=== PATIENT | male | born 1970 | race Caucasian/White ===

== ENCOUNTER → 2018-12-02 | Outpatient (CLI) | payer BC ==
[2018-12-02 11:55] LABS: Basophils # (A) 0.1 k/uL (0-0.2); Basophils % (A) 1 %; Eosinophils # (A) 0.4 k/uL (0-0.7); Eosinophils % (A) 6 %; HCT 47.8 % (39.0-53.0); HGB 15.5 gm/dL (13.0-17.5); Lymphocytes # (A) 1.7 k/uL (1.0-4.8); Lymphocytes % (A) 28 %; MCH 29.5 pg (25.0-35.0); MCHC 32.4 g/dL (31.0-37.0); MCV 91.2 fL (80.0-100.0); Mean Platelet Volume 6.9; Monocytes # (A) 0.4 k/uL (0-1.0); Monocytes % (A) 7 %; Neutrophils # (A) 3.3 k/uL (1.3-7.7); Neutrophils % (A) 55 %; Platelet Count 282 k/uL (150-450); RBC 5.24 m/uL (4.30-5.90); RDW 12.5 % (11.5-15.5)
[2018-12-02 12:52] LABS: ALT 32 U/L (21-72); AST 25 U/L (17-59); Albumin 4.6 g/dL (3.5-5.0); Alkaline Phosphatase 60 U/L (38-126); Anion Gap 8 mmol/L; Blood Urea Nitrogen 16 mg/dL (9-20); Calcium 9.8 mg/dL (8.4-10.2); Carbon Dioxide 29 mmol/L (22-30); Chloride 105 mmol/L (98-107); Cholesterol 248 mg/dL (<200); Glucose 99 mg/dL (74-99); HDL Cholesterol 52 mg/dL (40-60); LDL Cholesterol,Calculated 173 mg/dL (0-99); Potassium 5.4 mmol/L (3.5-5.1); Sodium 142 mmol/L (137-145); Total Bilirubin 1.5 mg/dL (0.2-1.3); Total Protein 7.7 g/dL (6.3-8.2); Triglycerides 114 mg/dL (<150)
[2018-12-02 17:20] LABS: Prostate Specific Antigen 0.6 ng/mL (0.0-2.5)
--- NOTE | 2018-12-03 10:25 | ECHOS ---
STRESS ECHOCARDIOGRAM INDICATIONS: Chest pain. MEDICATIONS: Omeprazole BASELINE HEART RATE: 73 BASELINE BLOOD PRESSURE: 108/58 MAXIMUM HEART RATE: 163 MAXIMUM BLOOD PRESSURE: 186/71 85% MPHR: 147 100% MPHR: 173 METS: 10.3 MAXIMUM STAGE REACHED: 3 TOTAL EXERCISE TIME: 9:00 CLINICAL INFORMATION: Baseline heart rate is 73 beats per minute. Baseline blood pressure of 108/58 mmHg. Patient exercised on a Jaylen protocol for 9 minutes achieving a peak heart rate of 163 beats per minute. Normal blood pressure response to exercise. There was no ECG evidence for ischemia. No arrhythmias noted. Baseline 2D echo images showed normal LV size systolic function without any segmental wall motion abnormalities. At peak exercise, there was augmentation of overall LV contractility without development of any wall motion abnormalities. At recovery, regional global LV systolic function remained normal. IMPRESSION: Good exercise capacity without ECG or echocardiographic evidence for ischemia. No arrhythmias. MMODL / IJN: [id number] /
== END | disposition home or self-care (01) ==
LOC: RADNMMAIN 09:44
PROVIDERS: ATTEND Family Medicine
DX: R07.9 Chest pain, unspecified (principal); Z00.00 Encounter for general adult medical examination without abnormal findings; Z12.5 Encounter for screening for malignant neoplasm of prostate; M24.80 Other specific joint derangements of unspecified joint, not elsewhere classified
CPT/HCPCS: 80053; 80061; 84153; 84443; 85025; 93351

== ENCOUNTER → 2020-05-10 | Outpatient (CLI) | payer BC ==
--- NOTE | 2020-05-10 10:49 | US ---
EXAMINATION TYPE: US groin LT DATE OF EXAM: 05/10/2020 COMPARISON: NONE CLINICAL HISTORY: K40.90 Lt inguinal hernia. Lump left groin for 2 weeks Scanned within area of concern, left groin, no evidence of inguinal hernia by ultrasound at this time , no changes with valsalva. Lymph node noted left groin = 1.2 x 0.8 x 0.8cm IMPRESSION: No evidence for hernia of the left groin.
== END | disposition home or self-care (01) ==
LOC: RADUSWWP 10:08
PROVIDERS: ATTEND Family Medicine
DX: K40.90 Unilateral inguinal hernia, without obstruction or gangrene, not specified as recurrent (principal)

== ENCOUNTER → 2025-02-06 | Outpatient (CLI) | payer BC ==
--- NOTE | 2025-02-06 13:01 | CT ---
EXAMINATION TYPE: CT heart w calcium score DATE OF EXAM: 02/06/2025 7:43 AM COMPARISON: None. CLINICAL INDICATION: Male, 54 years old with history of E78.5 HYPERLIPIDEMIA, UNSPECIFIED, HX OF HIGH CHOLESTEROL TECHNIQUE - Prospective Gating was used. Slice thickness: 3mm. Density threshold (HU): 130, Pixel threshold: 3, Algorithm: discrete Contrast used: mL of , (none if empty) Oral contrast used: (none if empty) CT DLP: 85.20 mGycm, Automated exposure control for dose reduction was used. FINDINGS: CT CALCIUM SCORING Coronary calcium is a marker for plaque (fatty deposits) in a blood vessel or atherosclerosis (harden ing of the arteries). The presence and amount of calcium detected in a coronary artery by the CT sca n, indicates the presence and amount of atherosclerotic plaque. These calcium deposits appear years before the development of heart disease symptoms such as chest pain and shortness of breath. A calcium score is computed for each of the coronary arteries based upon the volume and density of th e calcium deposits. This can be referred to as your calcified plaque burden. It does not correspond directly to the percentage of narrowing in the artery but does correlate with the severity of the un derlying coronary atherosclerosis. RESULTS Region: LM Calcium Score ([place]): 3.74 Volume (mm3): 5.62 Mass (g): 1.87 Region: RCA Calcium Score ([place]): 25.9 Volume (mm3): 43.53 Mass (g): 14.51 Region: LAD Calcium Score ([place]): 0 Volume (mm3): 0 Mass (g): 0 Region: CX Calcium Score ([place]): 0 Volume (mm3): 0 Mass (g): 0 Region: PDA Calcium Score ([place]): 0 Volume (mm3): 0 Mass (g): 0 Total: Calcium Score ([place]): 29.64 Volume (mm3): 49.15 Mass (g): 16.38 TOTAL CALCIUM SCORE: 29.64 IMPRESSION: Calcium Score: 30 Implication: At least mild atherosclerotic plaque is within coronary vessels. Risk of Coronary Artery Disease: Mild or minimal coronary narrowings likely. Impression: 1. Minimal or mild risk for significant coronary artery stenosis. CALCIUM SCORE IMPLICATION RISK OF C ORONARY ARTERY DISEASE 0 No identifiable plaque Very low, generally less than 5% 1-10 Minimal identifiable plaque Very unlikely, less than 10% 11-100 Definite, at least mild atherosclerotic plaque Mild or m inimal coronary narrowings likely 101-400 Definite, at least moderate atherosclerotic plaque Mild coronary ar mathew disease highly likely, significant narrowing possible 401 or Higher Extensive atherosclerotic plaque High lik elihood of at least one significant coronary narrowing [facility], , 02/06/2025 12:59 PM
== END | disposition home or self-care (01) ==
LOC: RADCTMAIN 06:58
PROVIDERS: ATTEND Family Medicine
DX: E78.5 Hyperlipidemia, unspecified (principal); E78.00 Pure hypercholesterolemia, unspecified; I25.10 Atherosclerotic heart disease of native coronary artery without angina pectoris
CPT/HCPCS: 75571